=== PATIENT | male | born 1955 | race Hispanic/Latino ===

== ENCOUNTER 2016-10-16 10:00 | Day surgery (SDC) | payer OTHER ==
[~2016-10-16] VITALS: Ht 167.6 cm; Wt 83.0 kg
[~2016-10-16 10:00] MED LIST: HYDR12.55 PO; Sodium Chloride LOK Flush 10 mL Syringe IV PRN; fentaNYL-PF 50 mCg/mL 2 mL Inj IVPUSH PRN
[2016-10-16 10:14] VITALS: BP 137/83; PULSE 82; RESP 16; O2SAT 97
[2016-10-16] MEDS: 0.9% Sodium Chloride 1,000 ML IV SCH ×2 (10:51→11:00)
[2016-10-16 11:11] VITALS: BP 129/92; PULSE 80; RESP 14; O2SAT 92
[2016-10-16 11:20] VITALS: BP 129/96; PULSE 75; RESP 14; O2SAT 93
[2016-10-16 11:30] VITALS: BP 132/85; PULSE 80; RESP 14; O2SAT 95
[2016-10-16 11:40] VITALS: BP 128/91; PULSE 82; RESP 16; O2SAT 96
[2016-10-16 11:50] VITALS: BP 140/93; PULSE 82; RESP 16; O2SAT 96
--- NOTE | 2016-10-16 12:25 | ENDO ---
[address] [address] ENDOSCOPY PROCEDURE PATIENT: BERNADETTE HENDERSON : 1955 MR#: [id number] ADMIT: 10/16/2016 JOB ID: [id number] DATE OF SERVICE: 10/16/2016 PRIMARY PROVIDER: Dexter Verdugo DO. PROCEDURE: 1. Esophagogastroduodenoscopy with biopsies. 2. Colonoscopy. INDICATIONS: This is a 60-year-old male with chronic reflux who reports for Johnson's screening. He also has a family history of colon cancer, presents for colon cancer screening. EQUIPMENT: GIF-H180J and a PCF-H180AL. SEDATION: 1. Versed 5 mg. 2. Fentanyl 100 mcg. COMPLICATIONS: None identified. BOWEL PREPARATION: Fair, adequate exam. PROCEDURE INFORMATION: After the risks were reviewed with the patient, written and verbal informed consent was obtained. The patient was brought into the endoscopy suite and placed into the left lateral decubitus position. Sedation was achieved as above. The scope introduced into the mouth through the bite block, and advanced under direct visualization to the second portion of the duodenum. The scope was slowly withdrawn to carefully examine the mucosa for any defects or lesions. Retroflexed views were accomplished in the stomach. The stomach was decompressed. The scope removed from the patient who tolerated the procedure well. The patient was then turned around. A digital rectal examination accomplished. No significant pathology appreciated. The scope introduced into the rectum and advanced under direct visualization to the cecum as identified by the appendiceal orifice and ileocecal valve. The scope was slowly withdrawn to carefully examine the mucosa for any defects or lesions. Multiple direct views were made through the dentate line for exclusion of pathology. The colon was decompressed. The scope removed from the patient who tolerated the procedure well. FINDINGS: 1. Duodenum: No pathology from the bulb through to the second portion. 2. Stomach: The patient had a diffuse nonspecific gastropathy. Random gastric biopsy was thus acquired for exclusion of helicobacter or any other underlying histopathology. No ulcers. No mass lesions. No outlet obstruction. Retroflexed views of the LES were rather unremarkable. 3. Esophagus: The squamocolumnar junction generally correlated with the top of the gastric folds. The GEJ was at about 39 cm from the incisors. No evidence of any acute erosive changes. There was a small, thin, perhaps 2-3 mm tongue of salmon-colored mucosa that extended up into the tubular esophagus by approximately half a centimeter in the 12 o'clock location. This was targeted for biopsy for exclusion of specialized intestinal metaplasia. No other pathology was seen in the esophagus. 4. Colon: No significant polyps, mass lesions, or inflammatory features identified throughout. ENDOSCOPIC DIAGNOSES: 1. Subtle sliding hiatal hernia (not mentioned above). 2. 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 3. Gastropathy. 4. Visually unremarkable colonoscopy to cecum. RECOMMENDATIONS: 1. Await histopathology. 2. Continue antireflux regimen. 3. If Johnson's is confirmed without dysplasia, then repeat EGD will be pursued in 9-12 months. 4. Considering family history, repeat colonoscopy in five years.
--- NOTE | 2016-10-17 14:10 | PATH ---
SURGICAL PATHOLOGY Attending Physician:Eric Aviles CASE STATUS: Signed Out PATIENT NAME: BERNADETTE HENDERSON PID: [id number] : 1955 DATE COLLECTED:10/16/2016 15:14 SPECIMEN: 1: Gastric, Biopsy 2: Esophagus, Biopsy CLINICAL HISTORY: GERD 1).GASTRIC BIOPSY 2).DISTAL ESOPHAGUS BIOPSY FINAL DIAGNOSIS: 1.GASTRIC BIOPSY: MILD TO MODERATE CHRONIC GASTRITIS, FOCALLY ACTIVE, INVOLVING FUNDIC MUCOSA. Immunohistochemistry for Helicobacter pending, to be reported by addendum. Negative for intestinal metaplasia. Negative for dysplasia and malignancy. 2.DISTAL ESOPHAGUS BIOPSY: SQUAMOUS MUCOSA AND GASTRIC CARDIA-TYPE MUCOSA CHRONICALLY INFLAMED WITH REACTIVE EPITHELIAL CHANGES. Negative for specialized metaplasia of Johnson' s-type esophagus. Negative for dysplasia and malignancy. Eosinophils are not increased. ICD10 code K29.70 GROSS DESCRIPTION: The specimen is received in two formalin filled containers labeled with the patient's name. 1). The specimen is sublabeled "gastric" and consists of a 0.4 x 0.3 x 0.3 CM portion of tissue which is entirely submitted in cassette 1A. 2). The specimen is sublabeled "distal esophagus" and consists of a 0.3 x 0.3 x 0.2 CM portion of tissue which is entirely submitted in cassette 2A. 10/16/2016 [facility] MICRO DESCRIPTION: See diagnosis. ICD-9 CODES: CPT CODES: 1: 72995, 98795 2: 81934 PROCEDURE/ADDENDA: Immunohistochemistry SPI Interpretation {Not Entered} Results-Comments Immunohistochemistry Results 1.GASTRIC BIOPSY: POSITIVE FOR HELICOBACTER PYLORI BY IMMUNOHISTOCHEMISTRY. This test was developed and its performance characteristics determined by [facility]. It has not been cleared or approved by the U. S. Food and Drug Administration. The FDA has determined that such clearance or approval is not necessary. This test is used for clinical purposes. It should not be regarded as investigational or for research. Electronically Signed Out Poncho Oconnor MD Electronically Signed Out Poncho Oconnor MD [facility] [place] [address] Technical component performed at [facility], [facility] [address], [place], [address]
== END 2016-10-16 23:59 | disposition home or self-care (01) ==
LOC: END 10:00
PROVIDERS: ATTEND Internal Medicine Gastroenterology
DX: Z12.11 Encounter for screening for malignant neoplasm of colon (principal); Z80.0 Family history of malignant neoplasm of digestive organs; K29.50 Unspecified chronic gastritis without bleeding; A04.8 Other specified bacterial intestinal infections; K20.9 Esophagitis, unspecified; K44.9 Diaphragmatic hernia without obstruction or gangrene; I10 Essential (primary) hypertension
CPT/HCPCS: 43239; 99153; G0105; G0500; J2250; J3010; J7030

== ENCOUNTER 2016-12-24 10:24 | Emergency (ER) | payer OTHER ==
[~2016-12-24 10:24] MED LIST changes: -Sodium Chloride LOK Flush 10 mL Syringe IV PRN; -fentaNYL-PF 50 mCg/mL 2 mL Inj IVPUSH PRN
[2016-12-24 10:29] VITALS: BP 155/86; PULSE 67; RESP 16
--- NOTE | 2016-12-24 10:37 | ED.REPORT ---
HPI-General Illness Date of Service December 24, 2016 ED Provider: Hugo Farah MD 61 year old Croatian-speaking male with a history of HTN presents to the ER complaining of six days of dizziness. Associated symptoms include dizziness, and blurred vision. Patient denies difficulty ambulating, difficulty speaking or swallowing, and focal weakness. He was referred by his primary care doctor for CVA rule-out. Nursing Notes Stated Complaint: DIZZINESS/BLURRY VISION Chief Complaint: Headache Nursing Notes Reviewed: Yes Allergies: Coded Allergies: aspirin (Verified Adverse Reaction, Mild, ABD PAIN, 10/16/16) Scheduled Hydrochlorothiazide (Hydrochlorothiazide) 12.5 Mg Tablet 12.5 MG PO DAILY General Time Seen by MD: 10:36 Chief Complaint Dizziness Hx Obtained From: Patient Arrived By: Walk-in Sudden in Onset?: No Onset Occurred: 6 days ago Symptom Duration: Since onset Recent Healthcare: Recent doctor visit Similar Sx Previous: No Past Medical History Past Medical History Reports: GERD, Hypertension Smoking History Former Smoker Ambulatory Status Independent Review of Systems Full Review of Systems Constitutional: Denies: Chills, Fever Eyes: Reports: Blurred bilateral Neurologic: Reports: Dizziness, Lightheaded, Denies: Abnormal movement, Bladder dysfunction, Confusion, Focal weakness, Problem walking, Slurred speech Complete sys rev & neg: except as marked. Physical Exam Vital Signs Vital Signs Date Time Temp Pulse Resp B/P Pulse Ox O2 Delivery O2 Flow Rate FiO2 12/24/16 13:26 68 126/86 96 Room Air 12/24/16 11:23 76 133/94 12/24/16 11:21 67 136/89 12/24/16 10:29 36.4 67 16 155/86 Initial VS: Reviewed Neck: Supple, Non-tender, Full range of motion Abdomen / GI: Soft, Non-tender, No guarding, No rebound, No distention Extremities: Vascular intact, Neuro intact, No swelling, No tenderness Skin: Warm, Dry, No cyanosis General/Constitutional: Awake, Alert, Well developed, Well nourished Head / Eyes: Atraumatic, Normocephalic, PERRL, No nystagmus Respiratory / Chest: Breath sounds NL, No respiratory distress, No rales, No rhonchi, No wheezing Cardiovascular: Heart rate NL, Regular rhythm, Heart sounds NL, Cap refill not delayed, Peripheral circulation NL Neurologic: Oriented X3, Speech NL, No motor deficits, No sensory deficits, CN II - XII intact No finger-nose dysmetria No heel-jeffries dysmetria Normal gait Interpretation & Diagnostics Lab Results Interpretation Result Diagram: 12/24/16 1125 12/24/16 1125 Test 12/24/16 11:25 White Blood Count 5.6th/mm3 (3.8-10.1) Red Blood Count 5.89mil/mm3 (4.40-5.80) Hemoglobin 15.3g/dL (13.8-17.2) Hematocrit 45.8% (41.0-50.0) Mean Corpuscular Volume 77.8fL (81-100) Mean Corpuscular Hemoglobin 26.0pg (27.0-35.0) Mean Corpuscular Hemoglobin Concent 33.4% (32.0-37.0) Red Cell Distribution Width 15.0% (12.3-15.4) Platelet Count 208bil/L (150-400) Neutrophils (%) (Auto) 62.7% (40-74) Lymphocytes (%) (Auto) 23.6% (14-46) Monocytes (%) (Auto) 7.9% (4-12) Eosinophils (%) (Auto) 4.7% (0-5) Basophils (%) (Auto) 0.9% (0-3) Sodium Level 134mEq/L (134-144) Potassium Level 4.0mEq/L (3.5-5.2) Chloride Level 97mEq/L (97-108) Carbon Dioxide Level 23mmol/L (18-29) Blood Urea Nitrogen 15mg/dL (8-27) Creatinine 0.61mg/dL (0.76-1.27) Estimat Glomerular Filtration Rate 142mL/min (>59) Glucose Level 109mg/dL (60-99) Calcium Level 9.9mg/dL (8.5-10.1) Total Bilirubin 0.3mg/dL (0.0-1.2) Aspartate Amino Transf (AST/SGOT) 19U/L (0-50) Alanine Aminotransferase (ALT/SGPT) 19U/L (0-44) Alkaline Phosphatase 60U/L (25-160) Total Protein 7.4g/dL (6.4-8.4) Albumin 4.0g/dL (3.4-5.0) CT Head Interpretation IMPRESSION: 1. No acute intracranial hemorrhage. 2. Probable chronic small vessel ischemic changes involving the right frontal lobe. The need for better characterization utilizing MRI may be determined clinically. 3. Mild ethmoid sinus disease. Dictated by: Oni Galaviz M.D. on 12/24/2016 at 11:04 Approved by: Oni Galaviz M.D. on 12/24/2016 at 11:06 Study: Head CT no contrast Interpretation / Wet Read by: Interpret - ED physician Re-Eval/Medical Decision Med Decision/Clinical Course 61-year-old male history of hypertension presenting with dizziness 6 days. Denied any dizziness on arrival and did not have any dizziness while he was here. No associated symptoms. He had no neurological deficits on exam. No cerebellar signs. Orthostatics negative. Labs are stable. CT brain shows no acute pathology. Given resolution of symptoms and normal CT scan with symptoms 6 days, patient is stable for discharge home. He is ambulatory without any difficulties prior to discharge. Time of Eval: 12:39 Re-Evaluation/Progress Note: Patient passed road test. Discussed imaging results and plan to discharge. Patient is amenable to the plan. Return precautions given. All other questions addressed. Counseled Regarding: Diagnosis, Lab results, Need for follow-up, When/why to return to ED Discharge & Departure Primary Impression: Dizziness Disposition: Home Discharge Condition All VS Reviewed: Yes Condition: Stable Additional Instructions: Your lab and imaging results today were very reassuring. I do not believe that there is any dangerous cause for your symptoms at this time. Given your symptoms resolved, we will not do an MRI at this time. Follow-up with your primary doctor tomorrow. Return to the ER if your symptoms return, or if you develop headache, changes in speech or vision, difficulty swallowing, weakness, numbness, tingling, or any other concerning symptoms. Nemo resultados de laboratorio e imgenes fueron hoy muy tranquilizadores. No creo que haya ninguna causa peligrosa para nemo sntomas en kiersten momento. Dado que nemo sntomas se resuelven, no haremos cristel resonancia magntica en kiersten momento. Seguir con rudolph mdico principal maana. Vuelva a la yordy de emergencias si nemo sntomas regresan, o si desarrolla dolor de cari, cambios en el habla o la visin, dificultad para tragar, debilidad, entumecimiento, hormigueo o cualquier otro sobre los sntomas. Referrals: Dexter Verdugo DO (PCP) Scribe Attestation Portions of this note were transcribed by Michele Nelson. I, Dr. Farah, personally performed the history, physical exam and medical decision-making; I reviewed and confirmed the accuracy of the information in the transcribed note. Signed by: Clint Donis, 12/24/2016 at 13:09 copies to: Dexter Verdugo Ben M MD December 24, 2016 10:37 MICHELE NELSON December 24, 2016 10:55
[2016-12-24 11:21] VITALS: BP 136/89; PULSE 67
[2016-12-24 11:23] VITALS: BP 133/94; PULSE 76
[2016-12-24 11:39] LABS: BASOPHILS % (AUTO) 0.9 % (0-3); EOSINOPHILS % (AUTO) 4.7 % (0-5); MONOCYTES % (AUTO) 7.9 % (4-12); Mean Corpuscular Volume 77.8 fL (81-100); NEUTROPHILS % (AUTO) 62.7 % (40-74); Platelet Count 208 bil/L (150-400)
--- NOTE | 2016-12-24 12:07 | DRSVH ---
PROCEDURE: CT BRAIN WITHOUT CONTRAST ([id number]) INDICATIONS: headache dizziness TECHNIQUE: Noncontrast 4.5 mm thick angled axial sections acquired from the foramen magnum to the vertex, with c oronal reformats. COMPARISON: None. FINDINGS: Image quality: Diagnostic. Brain: There is no acute intra-axial or extra-axial hemorrhage. No extra-axial fluid collection is i dentified. There is no midline shift or mass effect. The orbits are grossly unremarkable. No large areas of diffusely decreased attenuation are evident within the brain to suggest diffuse cer ebral edema. There is a vague area of low attenuation identified within the deep white matter of the inferior right frontal lobe (image 19, series 3). The ventricles and cortical sulci are age-appropriate. Bones: Calvarium and visualized facial bones are grossly intact. Mild mucosal thickening is noted i nvolving the ethmoid air cells. Otherwise, the imaged paranasal sinuses are clear. IMPRESSION: 1. No acute intracranial hemorrhage. 2. Probable chronic small vessel ischemic changes involving the right frontal lobe. The need for be tter characterization utilizing MRI may be determined clinically. 3. Mild ethmoid sinus disease. Dictated by: Oni Galaviz M.D. on 12/24/2016 at 11:04 Approved by: Oni Galaviz M.D. on 12/24/2016 at 11:06
[2016-12-24 13:26] VITALS: BP 126/86; PULSE 68; O2SAT 96
== END 2016-12-24 13:24 | disposition home or self-care (01) ==
LOC: SED 10:24
DX: R42 Dizziness and giddiness (principal); K21.9 Gastro-esophageal reflux disease without esophagitis; I10 Essential (primary) hypertension; Z87.891 Personal history of nicotine dependence; Z88.6 Allergy status to analgesic agent